=== PATIENT | male | born 1980 | race African-American/Black ===

== ENCOUNTER 2017-01-23 12:38 | Emergency (ER) | payer MEDICAID, OTHER ==
[~2017-01-23] VITALS: Ht 180.3 cm; Wt 63.5 kg
[~2017-01-23 12:38] MED LIST: IBUPROFEN400 MG ORAL; IBUPROFEN600 MG ORAL
[2017-01-23] MEDS ORDERED: triumeq PO (12:57)
[2017-01-23 13:03] VITALS: BP 109/82
[2017-01-23] MEDS ORDERED: IBUPROFEN600 MG ORAL (13:05)
[2017-01-23] MEDS ORDERED: AUGMENTIN 500-1 EACH ORAL (13:05)
[2017-01-23 13:08] VITALS: BP 109/82
--- NOTE | 2017-01-23 16:16 | Emergency Room Report ---
History of Present Illness General Chief Complaint: Toothache Source: Patient Present Illness HPI The patient is a 36-year-old male presenting for possible abscess of the mouth. The patient noticed pain and swelling to the right lower cheek yesterday. Pain is described as a 6/10 dull ache and does not radiate. Pain is worse with touch. The patient states he has had an abscess in this location one year in the past which was treated successfully with amoxicillin. The patient was to followup with dentist at that point but did not. The patient denies any other symptoms including N, V, F, chills, cough, dysphagia Allergies: Coded Allergies: No Known Allergies (Unverified , 03/04/15) Patient History Past Medical History: see triage record Pertinent Family History: none Reviewed Nursing Documentation: PMH: Agreed, PSxH: Agreed Review of Systems All Other Systems: negative except mentioned in HPI Physical Exam Vital Signs Date Time Temp Pulse Resp B/P Pulse Ox O2 Delivery O2 Flow Rate FiO2 01/23/17 12:46 98.2 65 16 109/82 100 Room Air Sp02 EP Interpretation: reviewed, normal General Appearance: no apparent distress, alert, GCS 15, non-toxic Head: normocephalic, atraumatic Eyes: bilateral eye PERRL, bilateral eye normal inspection ENT: normal pharynx, no angioedema, normal voice, other - R lower premolar: 2cm indurated abscess. TTP. Neck: full range of motion, supple/symm/no masses Respiratory: chest non-tender, lungs clear, normal breath sounds, speaking full sentences Musculoskeletal: back normal, gait/station normal, normal range of motion, non- tender Neurologic: alert, oriented x3, responsive, motor strength/tone normal, sensory intact, speech normal Psychiatric: judgement/insight normal, memory normal, mood/affect normal, no suicidal/homicidal ideation Skin: normal color, no rash, warm/dry, well hydrated Lymphatic: no adenopathy Medical Decision Making PA Attestation Dr. Sky is my supervising physician. Patient management was discussed with my supervising physician Diagnostic Impression: Primary Impression: Tooth abscess ER Course The patient is a 36-year-old male presenting for possible abscess of the mouth Diagnoses considered but not limited to: Dental caries, dental abscess, toothache, gingivitis PE: vitals WNL. NAD R lower premolar: 2cm indurated abscess. TTP. No DC. No bleeding. Poor dentition throughout. No tonsillar edema or exudate. The patient will be discharged home with a prescription for Augmentin and Motrin. Patient is to followup with dentist as soon as possible. ER precautions given Last Vital Signs Date Time Temp Pulse Resp B/P Pulse Ox O2 Delivery O2 Flow Rate FiO2 01/23/17 13:08 98.2 16 109/82 100 Room Air 01/23/17 12:46 65 Status: improved Disposition: HOME, SELF-CARE Condition: Improved Scripts Ibuprofen* (MOTRIN*) 600 Mg Tablet 600 MG ORAL Q8H Y for For Pain, #30 TAB 0 Refills Prov: REBECCA SYEDAAmberly 01/23/17 Amoxicillin/Potassium Clav 500-125 Tablet* (AUGMENTIN 500-125 TABLET*) 1 Each Tablet 1 TAB ORAL THREE TIMES A DAY, #21 TAB Prov: REBECCA SYED 01/23/17 Referrals: [facility],REFERRING (PCP) Patient Instructions: Dental Abscess Additional Instructions: I discussed my findings with the patient. All questions and concerns have been answered. Treatment and medication compliance have been addressed. I advised the patient that they need to follow up with PMD in 3-5 days. Return to ED if symptoms worsen, new symptoms arise, or if needed for any reason. Patient verbalized understanding of discharge instructions. The patient is advised he needs to followup with a dentist as soon as possible REBECCA SYED Jan 23, 2017 16:15
== END 2017-01-23 13:09 | disposition home or self-care (01) ==
LOC: EMR 13:03
DX: K04.7 Periapical abscess without sinus (principal)
CPT/HCPCS: 99284

== ENCOUNTER 2017-05-15 06:31 | Emergency (ER) | payer OTHER ==
[~2017-05-15] VITALS: Ht 185.4 cm; Wt 55.3 kg
[~2017-05-15 06:31] MED LIST changes: +AUGMENTIN 500-1 EACH ORAL; +triumeq PO
--- NOTE | 2017-05-15 06:55 | Emergency Room Report ---
History of Present Illness General Chief Complaint: Abdominal Pain Source: Patient Present Illness HPI Patient is a 36-year-old male who presented after having increased of burning epigastric pain. Patient had history of gastritis and had intermittently been taking Pepcid. The patient prior history of HIV. He had reportedly been compliant with medications and had been having normal blood counts. He denies hematemesis. The patient stated he ate some spicy food last night and began having increased pain. Patient no prior history of black or bloody stools Allergies: Coded Allergies: No Known Allergies (Unverified , 03/04/15) Patient History Past Medical History: see triage record Reviewed Nursing Documentation: PMH: Agreed, PSxH: Agreed Nursing Documentation-PMH Past Medical History: No History, Except For Review of Systems All Other Systems: negative except mentioned in HPI Physical Exam Vital Signs Date Time Temp Pulse Resp B/P Pulse Ox O2 Delivery O2 Flow Rate FiO2 05/15/17 06:39 97.9 83 16 122/82 100 Room Air General Appearance: well appearing, no apparent distress, alert, GCS 15, thin, Chronically Ill Head: normocephalic, atraumatic ENT: hearing grossly normal, normal voice Neck: full range of motion, supple Respiratory: no respiratory distress, speaking full sentences Cardiovascular #1: normal inspection, regular rate, rhythm Gastrointestinal: normal inspection, normal bowel sounds, non tender, soft Musculoskeletal: normal inspection, back normal, digits/nails normal, no calf tenderness Neurologic: normal inspection, alert, oriented x3, responsive, principal engineer III-XII nml as tested, normal gait Psychiatric: mood/affect normal Skin: no rash Medical Decision Making Diagnostic Impression: Primary Impression: Abdominal pain Additional Impression: Gastritis ER Course Patient presented for abdominal pain. Differential diagnoses included ischemic bowel, appendicitis, perforated viscus, abdominal aortic aneurysm, inferior myocardial infarction, viral gastroenteritis Patient's benign exam and does not appear to require any further imaging or laboratory testing at this time. Patient was given a GI cocktail and Zofran. Patient was given oral h2 urmila. The patient is advised to follow up with primary care doctor in 1-2 days. Patient is advised to return if any worsening condition or if any changes in status that are concerning. Last Vital Signs Date Time Temp Pulse Resp B/P Pulse Ox O2 Delivery O2 Flow Rate FiO2 05/15/17 06:39 97.9 83 16 122/82 100 Room Air Status: improved Disposition: HOME, SELF-CARE Condition: Stable Scripts Famotidine (PEPCID) 20 Mg Tablet 20 MG ORAL DAILY, #14 TAB 0 Refills Prov: Elio Dunne 05/15/17 Elio Dunne May 15, 2017 06:55
[2017-05-15] MEDS ORDERED: Dicyclomine HCl 10mg/5ml oral soln ORAL ONE (07:00)
[2017-05-15] MEDS ORDERED: PEPCID20 MG ORAL (07:02)
[2017-05-15 07:15] VITALS: BP 119/82
== END 2017-05-15 07:20 | disposition home or self-care (01) ==
LOC: EMR 07:04
DX: K29.70 Gastritis, unspecified, without bleeding (principal)
CPT/HCPCS: 99283

== ENCOUNTER 2018-07-20 12:53 | Emergency (ER) | payer MEDICAID ==
[~2018-07-20] VITALS: Ht 182.9 cm; Wt 59.0 kg
[~2018-07-20 12:53] MED LIST changes: +PEPCID20 MG ORAL
[2018-07-20 13:01] VITALS: BP 108/77
[2018-07-20] MEDS ORDERED: Meclizine 25mg tab ORAL PRN (13:30)
[2018-07-20 14:50] VITALS: BP 102/72
[2018-07-20 14:55] VITALS: BP 111/82
[2018-07-20 15:00] VITALS: BP 116/85
[2018-07-20] MEDS ORDERED: Sodium Chloride 500ML 500 ML IV ONE (15:15)
[2018-07-20 16:12] VITALS: BP 109/77
[2018-07-20 16:13] VITALS: BP 109/77
[2018-07-20] MEDS ORDERED: VERTICALM25 MG ORAL (16:13)
--- NOTE | 2018-07-20 16:13 | Emergency Room Report ---
History of Present Illness General Chief Complaint: Dizziness Source: Patient Present Illness Allergies: Coded Allergies: No Known Allergies (Unverified , 07/20/18) Nursing Documentation-[facility] Past Medical History: No History, Except For Physical Exam Vital Signs Date Time Temp Pulse Resp B/P (MAP) Pulse Ox O2 Delivery O2 Flow Rate FiO2 07/20/18 13:01 98.0 102 16 108/77 97 Room Air 98.0 Medical Decision Making PA Attestation Dr. Dunne is my supervising Physician whom patient management has been discussed with. Diagnostic Impression: Primary Impression: Orthostatic hypotension Additional Impression: Orthostatic dizziness Last Vital Signs Date Time Temp Pulse Resp B/P (MAP) Pulse Ox O2 Delivery O2 Flow Rate FiO2 07/20/18 15:00 87 16 116/85 98 Room Air 07/20/18 13:01 98.0 98.1 Disposition: HOME, SELF-CARE Condition: Stable Referrals: NON PHYSICIAN (PCP) Patient Instructions: Vertigo, Dizziness Additional Instructions: Take medications as directed. Follow up with a Primary Care Provider in 3-5 days, even if your symptoms have resolved. IF symptoms continue your PCP may recommend Specialty Referral such as Neurology --Please review list of primary care clinics, if you do not already have a primary care provider Return sooner to ED if new symptoms occur, or current symptoms become worse. Do not drink alcohol, drive, or operate heavy machinery while taking ANTIVERT/ MECLIZINE as this may cause drowsiness. - Please note that this Emergency Department Report was dictated using [employer] supervisor technology software, occasionally this can lead to erroneous entry secondary to interpretation by the dictation equipment. Tania Murillo Jul 20, 2018 16:12
--- NOTE | 2018-07-21 15:53 | Cardiology Report ---
APPROVED REPORT EKG Measurement Heart [id number] Normal sinus rhythm Right atrial enlargement Incomplete right bundle branch block Borderline ECG
== END 2018-07-20 17:00 | disposition home or self-care (01) ==
LOC: EMR 13:30
DX: I95.1 Orthostatic hypotension (principal); R42 Dizziness and giddiness
CPT/HCPCS: 93005; 96360; 99284

== ENCOUNTER 2020-04-26 12:55 | Emergency (ER) | payer MEDICAID ==
[~2020-04-26] VITALS: Ht 183.5 cm; Wt 59.0 kg
[~2020-04-26 12:55] MED LIST changes: +VERTICALM25 MG ORAL
--- NOTE | 2020-04-26 13:24 | NUR ---
ED Nurse Note: Pt from home walked in due to right buttock abscess x 1 week. Reports chills at home. HR in triage 140. Denies CP or SOB. AAO x4, ambulatory. Noted large boil with redness on right buttock. Skin is intact with no drainage upon arrival.
[2020-04-26] MEDS ORDERED: Ketorolac 30mg Inj IV ONE (13:30)
[2020-04-26] MEDS ORDERED: cefTRIAXone 1 GM in NS 55 ML IVPB ONE (13:30)
[2020-04-26] MEDS ORDERED: Tylenol #3 tab (300mg/30mg) ORAL ONE (13:30)
[2020-04-26] MEDS ORDERED: Lidocaine 1% 10mg/ml/EPI 0.01mg/ml 30ml INJ ONE (13:30)
[2020-04-26 13:43] LABS: BASOPHILS % (AUTO) 1.4 % (0.0-2.0); EOSINOPHILS % (AUTO) 0.2 % (0.0-3.0); HEMATOCRIT 37.8 % (42.0-52.0); HEMOGLOBIN 12.2 G/DL (14.2-18.0); LYMPHOCYTES % (AUTO) 12.2 % (20.0-45.0); MEAN CORPUSCULAR VOLUME 81 FL (80-99); MONOCYTES % (AUTO) 10.1 % (1.0-10.0); NEUTROPHILS % (AUTO) 76.1 % (45.0-75.0); PLATELET COUNT 411 K/UL (150-450); RED BLOOD COUNT 4.69 M/UL (4.70-6.10); RED CELL DISTRIBUTION WIDTH 13.4 % (11.6-14.8); WHITE BLOOD COUNT 10.3 K/UL (4.8-10.8)
[2020-04-26 13:50] VITALS: BP 125/76
[2020-04-26 13:57] LABS: ANION GAP 10 mmol/L (5-15); BLOOD UREA NITROGEN 10 mg/dL (7-18); CALCIUM 8.5 MG/DL (8.5-10.1); CARBON DIOXIDE 28 MMOL/L (21-32); CHLORIDE 101 MMOL/L (98-107); CREATININE 1.4 MG/DL (0.55-1.30); POTASSIUM 3.8 MMOL/L (3.5-5.1); SODIUM 139 MMOL/L (136-145)
[2020-04-26 14:01] LABS: ALANINE AMINOTRANSFERASE 21 U/L (12-78); ALBUMIN 3.3 G/DL (3.4-5.0); ALBUMIN/GLOBULIN RATIO 0.9 (1.0-2.7); ALKALINE PHOSPHATASE 74 U/L (46-116); ASPARTATE AMINO TRANSFERASE 12 U/L (15-37); BILIRUBIN,TOTAL 0.5 MG/DL (0.2-1.0)
[2020-04-26] MEDS ORDERED: Morphine Sulfate 2mg/ml Inj(IV/IM USE ONLY) IVP ONE (14:15)
--- NOTE | 2020-04-26 14:36 | Emergency Room Report ---
History of Present Illness General Chief Complaint: Skin Rash/Abscess Source: Patient Present Illness HPI 39-year-old male with no significant past medical history here complaining of a painful abscess in the right buttocks has been there for past few days. Denies any fever and chills. Appears to be tachycardic however reports that he is scared of the procedure is going to be performed today for incision and drainage. Rates the pain 10 out of 10 without radiation. Denies any bloody discharge. Denies any constipation. Denies any saddle paresthesia, urinary bowel incontinence. Denies any trauma to the area. Reports that he shaves the area frequently and his happening to him all the time. Is up-to-date with tetanus shot. Patient is very scared of pain and agrees to be given an injection of morphine as well as taking Tylenol 3 in order to tolerate the pain. Patient reports that he does not have any pain after he was given pain medication and I was able to I&D the abscess. Denies chest pain, shortness of breath, headache and dizziness. Allergies: Coded Allergies: No Known Allergies (Unverified , 07/20/18) COVID-19 Screening Contact w/high risk pt: No Recent Travel to affected area: No Experienced COVID-19 symptoms?: No COVID-19 Testing performed INTERNET TECHNOLOGY MANAGER: No Patient History Past Medical History: see triage record Past Surgical History: none Pertinent Family History: none Immunizations: UTD Reviewed Nursing Documentation: PMH: Agreed; PSxH: Agreed Nursing Documentation-PMH Past Medical History: No History, Except For Review of Systems All Other Systems: negative except mentioned in HPI Physical Exam Vital Signs Date Time Temp Pulse Resp B/P (MAP) Pulse Ox O2 Delivery O2 Flow Rate FiO2 04/26/20 13:14 98.8 142 22 111/71 (84) 98 Room Air Sp02 EP Interpretation: reviewed, normal General Appearance: no apparent distress, alert, GCS 15, non-toxic Head: normocephalic, atraumatic Eyes: bilateral eye normal inspection, bilateral eye PERRL ENT: hearing grossly normal, normal pharynx, no angioedema, normal voice Neck: full range of motion, supple/symm/no masses Respiratory: chest non-tender, lungs clear, normal breath sounds, no rhonchi, no respiratory distress, no retraction, speaking full sentences Cardiovascular #1: regular rate, rhythm, no edema Cardiovascular #2: 2+ femoral (R), 2+ femoral (L) Gastrointestinal: non tender, soft Rectal: other - Abscess right buttocks Genitourinary: no CVA tenderness Musculoskeletal: back normal Neurologic: alert, motor strength/tone normal, oriented x3, sensory intact, responsive, speech normal Psychiatric: judgement/insight normal, memory normal, mood/affect normal, no suicidal/homicidal ideation Skin: other - Abscess right buttock Lymphatic: no adenopathy Procedures Incision and Drainage Incision and Drainage : Consent: Verbal Site: Right buttocks Blade Size: 11 I & D Procedure: betadine prep, sterile drapes applied Wound Location: pelvis Wound's Depth, Shape: superficial Wound Length (cm): 5 Wound Explored: contaminated Anesthesia: Lidocaine w/ Epi Volume Anesthetic (ccs): 20 Splint Applied?: No Sling Applied?: No Patient Tolerated: Well Complications: None Medical Decision Making PA Attestation All diagnoses and treatment plans were reviewed and discussed with my supervising physician Dr. Francis Diagnostic Impression: Primary Impression: Abscess of buttock, right ER Course 39-year-old male with no significant past medical history here complaining of a painful abscess in the right buttocks has been there for past few days. Denies any fever and chills. Appears to be tachycardic however reports that he is scared of the procedure is going to be performed today for incision and drainage. Rates the pain 10 out of 10 without radiation. Denies any bloody discharge. Denies any constipation. Denies any saddle paresthesia, urinary bowel incontinence. Denies any trauma to the area. Reports that he shaves the area frequently and his happening to him all the time. Is up-to-date with tetanus shot. Patient is very scared of pain and agrees to be given an injection of morphine as well as taking Tylenol 3 in order to tolerate the pain. Patient reports that he does not have any pain after he was given pain medication and I was able to I&D the abscess. Denies chest pain, shortness of breath, headache and dizziness. Ddx considered but are not limited to : Cellulitis, cyst, superficial infection , abscess Vital signs: are WNL, pt. is afebrile H&PE are most consistent with: Abscess of right buttocks ORDERS: CBC, CMP, lactic acid due to patient being tachycardic, ibuprofen 800, Bactrim DS, Keflex ED INTERVENTIONS: NS bolus, morphine, Tylenol 3, Toradol Rocephin, incision and drainage was done DISCHARGE: At this time pt. is stable for d/c to home. Will provide printed patient care instructions, and any necessary prescriptions. Care plan and follow up instructions have been discussed with the patient prior to discharge. Patient to have a recheck in 48 hours, if fever chills return to the emergency room. Proper wound care was discussed with patient, patient agrees with the above treatment. Take medication as directed if worsening symptom return to the emergency room. Last Vital Signs Date Time Temp Pulse Resp B/P (MAP) Pulse Ox O2 Delivery O2 Flow Rate FiO2 04/26/20 13:50 98.8 118 18 125/76 99 Room Air Disposition: HOME, SELF-CARE Condition: Stable Scripts Ibuprofen (Ibu) 800 Mg Tablet 800 MG PO TID, #30 TAB Prov: Yareli Blanco 04/26/20 Trimethoprim/Sulfamethoxazole 160/800* (BACTRIM DS TABLET*) 1 Each Tablet 1 TAB ORAL TWICE A DAY for 7 Days, #14 TAB Prov: Yareli Blanco 04/26/20 Cephalexin* (KEFLEX*) 500 Mg Capsule 500 MG ORAL EVERY 6 HOURS for 7 Days, #28 CAP Prov: Yareli Blanco 04/26/20 Patient Instructions: Abscess Additional Instructions: Take medication as directed, wound check in 48 hours, if fever and chills return to the emergency room sooner, if worsening symptoms return to the emergency room. Yareli Blanco Apr 26, 2020 14:36
[2020-04-26] MEDS ORDERED: BACTRIM DS TAB1 EAC1 ORAL (14:37)
[2020-04-26] MEDS ORDERED: IBU800 MG PO (14:37)
[2020-04-26] MEDS ORDERED: CEPHALEXIN500 MG ORAL (14:37)
[2020-04-26 14:46] VITALS: BP 134/70
--- NOTE | 2020-04-26 14:46 | NUR ---
ER DISCHARGE NOTE: Patient is cleared to be discharged per PA, pt is aox4, on room air, with stable vital signs. pt was given dc and prescription instructions, pt was able to verbalize understanding, pt id band and iv site removed without complications. pt is able to ambulate with steady gait. pt took all belongings.
== END 2020-04-26 14:46 | disposition home or self-care (01) ==
LOC: EMR 14:28
DX: L02.31 Cutaneous abscess of buttock (principal); R00.0 Tachycardia, unspecified
CPT/HCPCS: 10060; 36415; 80053; 83605; 85025; 96365; 96375; J0696; J1885; J2270; J7030; Z7502; 99284